=== PATIENT | female | born 1955 | race Caucasian/White ===

== ENCOUNTER 2017-12-17 20:53 | Emergency (ER) | payer OTHER, MEDICARE ==
[~2017-12-17] VITALS: Ht 162.6 cm; Wt 68.0 kg
[~2017-12-17 20:53] MED LIST: ATORVASTATIN CA10 MG PO; FLUOXETINE HYDR40 MG PO; TOPIRAMATE100 MG PO
--- NOTE | 2017-12-17 21:12 | ED GENERAL ADULT ---
History of Present Illness General Chief Complaint: Lower Extremity Injury Stated Complaint: RIGHT LEG PAIN, S/P FALL Source: patient, family Exam Limitations: TBI Vital Signs & Intake/Output Vital Signs & Intake/Output Vital Signs Date Time Temp Pulse Resp B/P B/P Pulse O2 O2 Flow FiO2 Mean Ox Delivery Rate 12/17 2244 98.6 58 16 121/78 99 Room Air 12/17 2103 98.1 61 18 126/80 98 Room Air Allergies Coded Allergies: latex (Severe, ANAPHYLAXIS 11/16/17) cephalexin (UNKNOWN 11/16/17) Reconcile Medications Atorvastatin Calcium (Lipitor) 10 MG TAB 1 TAB PO DAILY CHOLESTEROL (Reported ) Cholecalciferol (Vitamin D3) (Vitamin D) 1,000 UNIT TABLET 1,000 IU PO DAILY VITAMIN SUPPLEMENT (Reported) FLUOXETINE HCL (Fluoxetine Hydrochloride) 40 MG CAP 40 MG PO DAILY MENTAL HEALTH (Reported) Triage Note: PT FROM HOME C/O UNWITNESSED TWISTING OF THE RIGHT KNEE/LEG WHEN PT FELL AROUND 1400. PT STATES SHE WAS GOING OUT TO BRING PTS DOG BACK INTO THE HOUSE, SLIPPED AND FELL ON RIGHT SIDE OF BODY. PT STATES RIGHT HAND IS IN PAIN 5/10 WITH SORENESS AND RIGHT HAND NUMB/TINGLING. PT STATES RIGHT KNEE AND RIGHT UPPER THIGH IS IN PAIN. PT IS UNSURE IF HEADSTRIKE OR LOC. UNWITNESSED. PT HAS HX OF PREVIOUS TBI. PT UNABLE TO COMPLETELY TELL WHAT HAPPENED. PTS VSS. A&0X3. Triage Nurses Notes Reviewed? yes Onset: Abrupt Duration: hour(s): Timing: single episode today HPI: 62 y/o female with h/o TBI presenting with right knee pain s/p unwitnessed fall approximately 8 hours prior to arrival. Also with intermittent right hand paresthesias. Patient was outside getting the dog, tripped and fell onto her right side. Is unsure if she struck her head, but no loss of consciousness. Denies headache, visual changes, nausea, vomiting. (Ksenia Odonnell) Past History Travel History Traveled to [place] past 21 day No Medical History Any Pertinent Medical History? 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 No (Ksenia Odonnell) Review of Systems Review of Systems Constitutional: Reports: no symptoms. EENTM: Reports: no symptoms. Respiratory: Reports: no symptoms. Cardiovascular: Reports: no symptoms. GI: Reports: no symptoms. Genitourinary: Reports: no symptoms. Musculoskeletal: Reports: see HPI. Skin: Reports: no symptoms. Neurological/Psychological: Reports: no symptoms. Hematologic/Endocrine: Reports: no symptoms. Immunologic/Allergic: Reports: no symptoms. (Ksenia Odonnell) Physical Exam Physical Exam General Appearance: well developed/nourished, no apparent distress, alert, awake , comfortable Head: atraumatic, normal appearance Eyes: Bilateral: normal appearance, PERRL, EOMI. Ears, Nose, Throat: normal ENT inspection Neck: normal inspection, full range of motion, no midline tenderness Respiratory: normal breath sounds, chest non-tender, lungs clear Cardiovascular: regular rate/rhythm, normal peripheral pulses Gastrointestinal: soft, non-tender Back: normal inspection, normal range of motion, no vertebral tenderness Extremities: normal inspection, normal range of motion, exam of the right knee there are no abrasions, ecchymosis, or signs of trauma. No focal tenderness to palpation. Patient has unrestricted range of motion, but reports pain with ranging her knee. Sensation intact. Motor strength 5 out of 5. Distal pulses 2+. Patient is able to bear weight and ambulate using her cane (baseline)., on exam of the right hand there are no abrasions, ecchymosis, signs of trauma. No focal tenderness to palpation. Unrestricted range of motion at all MCPs/PIP/ DIPs. Sensation intact to median/ulnar/radial nerves. Motor strength 5 out of 5 with digit flexion, extension, interosseous strength, hand iron cutter strength. Radial pulse 2+. 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 Skin: intact, normal color, warm/dry Core Measures ACS in differential dx? No CVA/TIA Diagnosis: No Sepsis Present: No Sepsis Focused Exam Completed? No (Ksenia Odonnell) Progress Differential Diagnoses I considered the following diagnoses in my evaluation of the patient: [Right knee contusion versus fracture versus dislocation versus ICH versus cranial fracture versus C-spine fracture] Plan of Care: CT head and C-spine unremarkable. Right knee x-ray unremarkable. Patient likely with knee contusion, counseled on supportive care. Will follow up with her PMD. Given strict return precautions. Initial ED EKG: none (Ksenia Odonnell) Departure Departure Disposition: HOME OR SELF CARE Condition: Stable Clinical Impression Primary Impression: Right knee pain Secondary Impressions: Fall Referrals: Frank REBOLLAR,Stephen Brock (PCP/Family) Additional Instructions: Use tylenol or ibuprofen as needed for pain. Follow up with your primary care provider for re-evaluation. Return to the emergency department for any new or worsening symptoms. Departure Forms: Customer Survey General Discharge Information (Ksenia Odonnell) PA/CERTIFIED REAL ESTATE APPRAISER Co-Sign Statement Statement: ED Attending supervision documentation- [] I saw and evaluated the patient. I have also reviewed all the pertinent lab results and diagnostic results. I agree with the findings and the plan of care as documented in the PA's/CERTIFIED REAL ESTATE APPRAISER's documentation. [x] I have reviewed the ED Record and agree with the PA's/CERTIFIED REAL ESTATE APPRAISER's documentation. [] Additions or exceptions (if any) to the PAs/CERTIFIED REAL ESTATE APPRAISER's note and plan are summarized below: [] (Ingrid REBOLLAR,Mak Hernandez) Critical Care Note Critical Care Note Critical Care Time: non-applicable (Ksenia Odonnell)
[2017-12-17] MEDS ORDERED: VITAMIN D1000 UNIT PO (21:17)
--- NOTE | 2017-12-17 21:56 | RADIOLOGY REPORT ---
EXAMINATION: XR KNEE, RIGHT CLINICAL INFORMATION: Fall. Knee pain. COMPARISON: None TECHNIQUE: Four views of the right knee. FINDINGS: Bones and soft tissues are normal. No fracture or joint effusion. Alignment is anatomic. Joint spaces are well maintained. No abnormal soft tissue calcification. IMPRESSION: Normal right knee.
--- NOTE | 2017-12-17 22:06 | CT SCAN REPORT ---
EXAMINATION: CT HEAD WITHOUT CONTRAST CT CERVICAL SPINE WITHOUT CONTRAST CLINICAL INFORMATION: Unwitnessed fall. COMPARISON: CT head 11/16/2017 TECHNIQUE: Imaging was performed from the skull base to vertex without intravenous administration of contrast. In addition, helical noncontrast CT imaging was acquired through the cervical spine and source images were reviewed along with axial reconstructions and sagittal and coronal MPRs. DLP: 914.64 mGy-cm FINDINGS: HEAD: No intracranial mass, hemorrhage, or midline shift is visualized. There is atrophy with prominence of the ventricles and the sulci and hypodensity of the periventricular white matter due to chronic small vessel ischemic disease. There is vascular calcifications of the internal carotid arteries bilaterally. No extra-axial collections are identified. The paranasal sinuses and mastoid air cells are well aerated. CERVICAL SPINE: There is no evidence of acute cervical spine fracture. Vertebral bodies remain normal in height. Cervical vertebrae have normal alignment. There is multilevel degenerative spondylosis of the cervical spine with disc height narrowing and endplate spurs and facet joint arthrosis No pre- or paravertebral soft tissue abnormality is identified. Limited assessment of the lung apices is unremarkable. IMPRESSION: 1. No acute intracranial pathology. 2. No CT evidence of acute cervical spine fracture or traumatic subluxation
[2017-12-17 22:44] VITALS: BP 121/78
== END 2017-12-17 23:00 ==
LOC: ERH 20:53
DX: M25.561 Pain in right knee (principal)
CPT/HCPCS: 73560-RT